=== PATIENT | female | born 1940 | race Two or more races ===

== ENCOUNTER 2023-02-19 06:50 | Day surgery (SDC) | payer OTHER ==
[~2023-02-19] VITALS: Ht 152.4 cm; Wt 66.2 kg
[~2023-02-19 06:50] MED LIST: CARDURA1 MG PO; DIOVAN160 M1 PO; HYDRALAZINE HCL25 MG PO; PRAVASTATIN SOD20 MG PO; SERT PO; TOPROL XL50 M1 PO
[2023-02-19] MEDS ORDERED: OXYC1TAB9 PO (11:27)
== END 2023-02-19 15:00 | disposition home or self-care (01) ==
LOC: CIR.AMB 06:50
PROVIDERS: ATTEND Surgery
DX: D12.7 Benign neoplasm of rectosigmoid junction (principal); K64.8 Other hemorrhoids; Z20.822 Contact with and (suspected) exposure to COVID-19